=== PATIENT | male | born 1975 | race Two or more races ===

== ENCOUNTER 2018-05-18 16:44 | Inpatient (IN) | payer SELFPAY ==
[~2018-05-18] VITALS: Ht 177.8 cm; Wt 86.0 kg
[2018-05-18] MEDS ORDERED: LABETALOL HCL 5 MG/ML 4ML SYRINGE IV ONE ×2 (17:04→18:45)
[2018-05-18] MEDS: NICARDIPINE 25MG/250ML BAG KIT 250 ML IV SCH ×2 (17:04→17:30)
[2018-05-18] MEDS ORDERED: ASPirin 81 mg TAB ONE (17:09)
[2018-05-18] MEDS ORDERED: NITROGLYCERIN 0.4 MG SL TAB SL ONE ×2 (17:09→17:15)
[2018-05-18 17:15] LABS: Basophils # (auto) 0.1 uL; Basophils % (auto) 0.6 % (0.0-2.0); Eosinophils # (auto) 0.1 uL; Eosinophils % (auto) 1.1 % (0.0-7.0); Hematocrit 42.3 % (41.0-53.0); Hemoglobin 14.6 g/dL (13.5-17.5); Lymphocytes # (auto) 1.4 uL; Lymphocytes % (auto) 16.6 % (10.0-50.0); Mean Corpuscular Hemoglobin 30.5 pg (28.0-32.0); Mean Corpuscular Hgb Conc. 34.6 g/dL (32.0-36.0); Mean Corpuscular Volume 88.1 fL (80.0-100.0); Monocytes # (auto) 0.6 uL; Monocytes % (auto) 7.6 % (0.0-12.0); Neutrophils # (auto) 6.2 uL; Neutrophils % (auto) 74.1 % (37.0-80.0); Nucleated Red Blood Cells % 0.1 %; Platelet Count (auto) 199 10^3/uL (140-450); Red Cell Distribution Width 14.2 % (11.8-14.3); White Blood Cell 8.4 10^3/uL (4.4-10.8)
[2018-05-18] MEDS ORDERED: ASPirin 81 mg TAB PO ONE (17:15)
[2018-05-18] MEDS ORDERED: LABETALOL HCL 5 MG/ML ML 20ML VIAL IV ONE (17:15)
[2018-05-18 17:28] LABS: Alanine Aminotransferase 26 U/L (16-61); Anion Gap 8 (5-15); Aspartate Aminotransferase 21 U/L (15-37); Blood Urea Nitrogen 9 mg/dL (7-18); Calcium 8.4 mg/dL (8.5-10.1); Carbon Dioxide 28 mmol/L (21-32); Chloride 103 mmol/L (98-107); GFR African American 93 mL/min; GFR Non-African American 77 mL/min; Glucose 106 mg/dL (74-106); Magnesium 2.3 mg/dL (1.6-2.6); Potassium 3.1 mmol/L (3.5-5.1); Sodium 139 mmol/L (136-145)
[2018-05-18 17:29] LABS: INR 0.98 (0.9-1.15); Partial Thromboplastin Time 29.6 sec (23.78-33.04); Prothrombin Time 10.5 sec (9.27-12.13)
[2018-05-18 17:33] LABS: Alkaline Phosphatase 105 U/L (45-117); Bilirubin, Total 0.4 mg/dL (0.2-1.0); Total Protein 7.8 g/dL (6.4-8.2)
[2018-05-18] MEDS ORDERED: POTASSIUM EFFERVESENT TAB 25 MEQ PO ONE (18:15)
[2018-05-18 18:22] LABS: Urine WBC None Seen /hpf (0 - 3)
[2018-05-18] MEDS ORDERED: ACETAMINOPHEN 500 MG TAB PO PRN (18:30)
[2018-05-18] MEDS ORDERED: HYDROcodone-ACET 5/325MG TAB PO PRN (18:30)
[2018-05-18] MEDS ORDERED: LORazepam 0.5 MG TAB PO PRN (18:30)
[2018-05-18] MEDS ORDERED: LABETALOL HCL 5 MG/ML ML 20ML VIAL IV PRN ×2 (18:30)
[2018-05-18] MEDS ORDERED: PROMETHAZINE HCL 25 MG/ML 1ML IV PRN (18:30)
[2018-05-18] MEDS ORDERED: MORPHINE SULFATE 4 MG/ML SYR/VIAL IV PRN ×2 (18:30)
[2018-05-18] MEDS ORDERED: NITROGLYCERIN 0.4 MG SL TAB SL PRN (18:30)
[2018-05-18] MEDS ORDERED: LISINOPRIL 10 MG TAB PO ONE (18:45)
[2018-05-18] MEDS ORDERED: ENALAPRILAT 1.25 MG/ML-1ML VIAL IV ONE (18:45)
[2018-05-18] MEDS: SODIUM CHLORIDE 0.9% 1,000 ML IV SCH (18:48)
[2018-05-18] MEDS: METOPROLOL TARTRATE 25 MG TAB PO SCH ×2 (18:48→21:44)
[2018-05-18 19:13] LABS: Urine Bacteria NONE SEEN /hpf (None Seen); Urine Blood Negative /uL (Negative); Urine Specific Gravity 1.008 (1.001-1.035)
[2018-05-18] MEDS ORDERED: LABETALOL HCL 5 MG/ML 4ML SYRINGE IV PRN (19:15)
[2018-05-18 19:34] LABS: Alcohol, Urine < 3.0 mg/dL (0-5); Amphetamine Screen, Urine NEGATIVE (NEGATIVE); Barbiturate Scree,Urine NEGATIVE (NEGATIVE); Benzodiazephine Screen, Urine NEGATIVE (NEGATIVE); Cannabinoid Screen, Urine POSITIVE (NEGATIVE); Cocaine Screen, Urine NEGATIVE (NEGATIVE); Opiate Scree,Urine NEGATIVE (NEGATIVE); Phencyclidine Screen, Urine NEGATIVE (NEGATIVE)
[2018-05-18] MEDS: ATORVASTATIN 20 MG TAB PO SCH (21:42)
[2018-05-18] MEDS: LISINOPRIL 20 MG TAB PO SCH (21:44)
[2018-05-18 23:30] VITALS: BP 138/89
[2018-05-18 23:45] VITALS: BP 141/88
[2018-05-19] VITALS (93 sets, daily range): BP systolic 106–170; BP diastolic 47–110
[2018-05-19] MEDS: NICARDIPINE 25MG/250ML BAG KIT 250 ML IV SCH ×6 (00:36→23:04)
[2018-05-19 01:33] LABS: Hematocrit 42.9 % (41.0-53.0); Hemoglobin 14.4 g/dL (13.5-17.5)
[2018-05-19 04:49] LABS: Cholesterol 186 mg/dL (< 200); Triglycerides 188 mg/dL (< 150)
[2018-05-19 04:53] LABS: HDL Cholesterol 36 mg/dL (40-59); LDL Cholesterol 119 mg/dL (< 100)
[2018-05-19] MEDS: SODIUM CHLORIDE 0.9% 1,000 ML IV SCH (07:41)
[2018-05-19] MEDS ORDERED: ALPRAZolam 0.5 MG TAB PO PRN (09:45)
[2018-05-19] MEDS ORDERED: ENOXAPARIN SOD 40 MG/0.4 ML SYRINGE SC SCH (10:00)
[2018-05-19] MEDS ORDERED: NITROGLYCERIN 0.2MG/HR TOPICAL PATCH TD SCH (10:00)
[2018-05-19] MEDS ORDERED: ENALAPRIL MALEATE 10 MG TAB PO SCH (10:00)
[2018-05-19] MEDS: ASPirin 81 mg TAB PO SCH (10:29)
[2018-05-19] MEDS: PANTOPRAZOLE 40 MG TAB PO SCH (10:29)
[2018-05-19] MEDS: LISINOPRIL 20 MG TAB PO SCH ×2 (10:29→22:01)
[2018-05-19] MEDS: METOPROLOL TARTRATE 25 MG TAB PO SCH ×2 (10:35→22:00)
[2018-05-19 11:40] LABS: Albumin 3.5 g/dL (3.4-5.0); BUN/Creatinine Ratio 12.8; Calcium 8.3 mg/dL (8.5-10.1); Magnesium 2.3 mg/dL (1.6-2.6); Potassium 4.1 mmol/L (3.5-5.1)
[2018-05-19 11:43] LABS: Bilirubin, Total 0.5 mg/dL (0.2-1.0); Phosphorus 3.1 mg/dL (2.5-4.90); Total Protein 7.2 g/dL (6.4-8.2)
[2018-05-19] MEDS: LABETALOL HCL 5 MG/ML 4ML SYRINGE IV PRN (16:33)
[2018-05-19] MEDS: TEMAZEPAM 15 MG CAP PO PRN (22:01)
[2018-05-19] MEDS: ATORVASTATIN 20 MG TAB PO SCH (22:01)
[2018-05-20] VITALS (78 sets, daily range): BP systolic 100–178; BP diastolic 49–130
[2018-05-20] MEDS: NICARDIPINE 25MG/250ML BAG KIT 250 ML IV SCH ×4 (04:04→16:33)
[2018-05-20 04:20] LABS: Calcium 8.2 mg/dL (8.5-10.1)
[2018-05-20] MEDS ORDERED: METOPROLOL TARTRATE 50 MG TAB ONE (08:59)
[2018-05-20] MEDS: LABETALOL HCL 5 MG/ML 4ML SYRINGE IV PRN (09:07)
[2018-05-20] MEDS: PANTOPRAZOLE 40 MG TAB PO SCH (09:57)
[2018-05-20] MEDS: ASPirin 81 mg TAB PO SCH (09:58)
[2018-05-20] MEDS: METOPROLOL TARTRATE 25 MG TAB PO SCH ×2 (09:58→22:09)
[2018-05-20] MEDS: LISINOPRIL 20 MG TAB PO SCH ×2 (09:58→22:08)
[2018-05-20] MEDS ORDERED: GOLYTELY 4L KIT PO ONE (12:00)
[2018-05-20] MEDS ORDERED: amLODIPine BESYLATE 5 MG TAB ONE (13:13)
[2018-05-20] MEDS: ALPRAZolam 0.5 MG TAB PO PRN (14:09)
[2018-05-20] MEDS ORDERED: ENALAPRILAT 1.25 MG/ML-1ML VIAL IV PRN (14:45)
[2018-05-20] MEDS ORDERED: ENALAPRILAT 1.25 MG/ML-1ML VIAL IV ONE (14:50)
[2018-05-20] MEDS ORDERED: amLODIPine BESYLATE 5 MG TAB PO ONE (15:00)
[2018-05-20] MEDS: hydrALAZINE HCL 20 MG/ML VL IV PRN (16:34)
[2018-05-20] MEDS: ATORVASTATIN 20 MG TAB PO SCH (22:08)
[2018-05-20] MEDS: TEMAZEPAM 15 MG CAP PO PRN (23:01)
[2018-05-21] VITALS (70 sets, daily range): BP systolic 107–163; BP diastolic 55–109
[2018-05-21 04:39] LABS: Basophils # (auto) 0.1 uL; Basophils % (auto) 0.5 % (0.0-2.0); Eosinophils # (auto) 0.4 uL; Eosinophils % (auto) 3.8 % (0.0-7.0); Hematocrit 43.9 % (41.0-53.0); Hemoglobin 15.3 g/dL (13.5-17.5); Lymphocytes # (auto) 1.6 uL; Lymphocytes % (auto) 17.8 % (10.0-50.0); Mean Corpuscular Hgb Conc. 34.7 g/dL (32.0-36.0); Mean Corpuscular Volume 89.2 fL (80.0-100.0); Monocytes # (auto) 0.8 uL; Monocytes % (auto) 8.5 % (0.0-12.0); Neutrophils # (auto) 6.4 uL; Neutrophils % (auto) 69.4 % (37.0-80.0); Nucleated Red Blood Cells % 0.1 %; Platelet Count (auto) 197 10^3/uL (140-450); Red Blood Cells 4.92 10^6/uL (4.5-5.90); Red Cell Distribution Width 14.6 % (11.8-14.3); White Blood Cell 9.2 10^3/uL (4.4-10.8)
[2018-05-21 04:55] LABS: Calcium 8.8 mg/dL (8.5-10.1); Potassium 3.9 mmol/L (3.5-5.1)
[2018-05-21 05:01] LABS: Albumin 3.7 g/dL (3.4-5.0); BUN/Creatinine Ratio 11.7; Bilirubin, Total 0.7 mg/dL (0.2-1.0); Total Protein 7.6 g/dL (6.4-8.2)
[2018-05-21] MEDS: NICARDIPINE 25MG/250ML BAG KIT 250 ML IV SCH ×4 (05:04→15:04)
[2018-05-21] MEDS: hydrALAZINE HCL 20 MG/ML VL IV PRN (08:09)
[2018-05-21] MEDS ORDERED: ADENOSINE 72 MG in GIVE UN-DILUTED 0 ML IV STA (08:33)
[2018-05-21] MEDS ORDERED: IOHEXOL 350 MG/ML 100ML IJ ONE (09:13)
[2018-05-21] MEDS ORDERED: diphenhdrAMINE HCL 50 MG/1 ML VL IV ONE (09:15)
[2018-05-21] MEDS ORDERED: amLODIPine BESYLATE 5 MG TAB PO SCH ×2 (10:00)
[2018-05-21] MEDS: METOPROLOL TARTRATE 25 MG TAB PO SCH ×2 (10:20→21:42)
[2018-05-21] MEDS: ASPirin 81 mg TAB PO SCH (10:22)
[2018-05-21] MEDS: PANTOPRAZOLE 40 MG TAB PO SCH (10:22)
[2018-05-21] MEDS: LISINOPRIL 20 MG TAB PO SCH ×2 (10:22→21:41)
[2018-05-21 11:09] LABS: Urine Bacteria NONE SEEN /hpf (None Seen); Urine WBC <1 /hpf (0 - 3)
[2018-05-21] MEDS ORDERED: NIFEdipine ER 30 MG TAB PO ONE (12:30)
[2018-05-21] MEDS: ALPRAZolam 0.5 MG TAB PO PRN (14:58)
[2018-05-21] MEDS: ATORVASTATIN 20 MG TAB PO SCH (21:42)
[2018-05-21] MEDS: TEMAZEPAM 15 MG CAP PO PRN (22:47)
[2018-05-22 05:00] VITALS: BP 104/65
[2018-05-22] MEDS ORDERED: LISI-646 PO (06:24)
[2018-05-22 06:49] LABS: Basophils # (auto) 0 uL; Basophils % (auto) 0.6 % (0.0-2.0); Eosinophils # (auto) 0.3 uL; Eosinophils % (auto) 3.1 % (0.0-7.0); Hematocrit 44.8 % (41.0-53.0); Hemoglobin 15.6 g/dL (13.5-17.5); Lymphocytes # (auto) 1.6 uL; Lymphocytes % (auto) 19.3 % (10.0-50.0); Mean Corpuscular Hemoglobin 30.9 pg (28.0-32.0); Mean Corpuscular Hgb Conc. 34.8 g/dL (32.0-36.0); Mean Corpuscular Volume 88.7 fL (80.0-100.0); Monocytes # (auto) 0.7 uL; Monocytes % (auto) 7.7 % (0.0-12.0); Neutrophils # (auto) 5.9 uL; Neutrophils % (auto) 69.3 % (37.0-80.0); Nucleated Red Blood Cells % 0.1 %; Platelet Count (auto) 219 10^3/uL (140-450); Red Blood Cells 5.05 10^6/uL (4.5-5.90); Red Cell Distribution Width 14.8 % (11.8-14.3); White Blood Cell 8.5 10^3/uL (4.4-10.8)
[2018-05-22 06:58] LABS: Albumin 3.6 g/dL (3.4-5.0); Calcium 8.9 mg/dL (8.5-10.1); Potassium 4.1 mmol/L (3.5-5.1)
[2018-05-22 07:00] LABS: INR 1.02 (0.9-1.15); Partial Thromboplastin Time 31.3 sec (23.78-33.04); Prothrombin Time 10.9 sec (9.27-12.13)
[2018-05-22 07:02] LABS: BUN/Creatinine Ratio 12.4; Bilirubin, Total 1.5 mg/dL (0.2-1.0); Total Protein 7.5 g/dL (6.4-8.2)
[2018-05-22 09:00] VITALS: BP 125/71
[2018-05-22] MEDS: METOPROLOL TARTRATE 25 MG TAB PO SCH (09:18)
[2018-05-22] MEDS: ASPirin 81 mg TAB PO SCH (09:18)
[2018-05-22] MEDS: LISINOPRIL 20 MG TAB PO SCH (09:19)
[2018-05-22] MEDS: PANTOPRAZOLE 40 MG TAB PO SCH (09:19)
[2018-05-22] MEDS ORDERED: NIFEdipine ER 30 MG TAB PO SCH (10:00)
[2018-05-22] MEDS ORDERED: fentaNYL CITRATE 100 MCG/2 ML VL ONE (11:22)
[2018-05-22] MEDS ORDERED: MEPERIDINE HCL (50 MG/ML) 1 ML VIAL ONE (11:23)
[2018-05-22] MEDS ORDERED: MIDAZOLAM HCL 1MG/1ML-2 ML VIAL ONE (11:23)
[2018-05-22] MEDS ORDERED: PROPOFOL 10 MG/ML 20 ML IV ONE (11:25)
[2018-05-22] MEDS ORDERED: DEXAMETHASONE SOD PHOS 10MG/1ML VIAL INJ ONE (11:25)
[2018-05-22 12:59] VITALS: BP 129/83
[2018-05-22 15:56] VITALS: BP 129/83
[2018-05-23] MEDS ORDERED: HYDROCORTISONE ACET 25 MG RECTAL SUPP PR SCH (10:00)
== END 2018-05-22 18:23 | disposition home or self-care (01) | DRG 394 ==
LOC: ER 16:50 → TELE 18:25 → ICU WEST 22:45 → TELE-WESTW 05-21 21:50
PROVIDERS: ADMIT Internal Medicine; ATTEND Internal Medicine
PROC: 0DJD8ZZ Inspection of Lower Intestinal Tract, Via Natural or Artificial Opening Endoscopic (ICD-10-PCS; principal; 2018-05-22 11:05)
DX: K64.8 Other hemorrhoids (principal); J98.11 Atelectasis; F12.90 Cannabis use, unspecified, uncomplicated; F41.9 Anxiety disorder, unspecified; I10 Essential (primary) hypertension; I16.0 Hypertensive urgency; I25.10 Atherosclerotic heart disease of native coronary artery without angina pectoris; I49.3 Ventricular premature depolarization; E87.6 Hypokalemia; K57.30 Diverticulosis of large intestine without perforation or abscess without bleeding; R07.89 Other chest pain; Z82.49 Family history of ischemic heart disease and other diseases of the circulatory system; Z91.013 Allergy to seafood; Z83.6 Family history of other diseases of the respiratory system
CPT/HCPCS: 36415; 71045; 80048; 80053; 80061; 80307; 81001; 81015; 82550; 83735; 83880; 84100; 84260; 84443; 84484; 85014; 85018; 85025; 85379; 85610; 85652; 85730; 86141; 86850; 86900; 86901; 87081; 93005; 93306; 96374; 96375; 96376; 99291; G0378; J0153; J1100; J2250; J2704; J3490